=== PATIENT | male | born 1990 | race Caucasian/White ===

== ENCOUNTER 2023-08-07 06:04 | Day surgery (SDC) | payer OTHER ==
[~2023-08-07] VITALS: Ht 177.8 cm; Wt 128.5 kg
[~2023-08-07 06:04] MED LIST: GABA-282 PO; HYDR-3490 PO; LISI10TA22 PO; NAPR-885 PO; OMEP40CA5 PO; SYNT100T PO; TIZA10TA PO; VITA100093 PO
[2023-08-07] MEDS ORDERED: LR 1,000 ML IV SCH ×2 (06:10→09:00)
[2023-08-07] MEDS ORDERED: LIDOCAINE 2% 100MG/5ML SDV (FOR ANES.) As Ordered ONE (07:15)
[2023-08-07] MEDS ORDERED: fentaNYL 250 MCG/5 ML INJECTION As Ordered ONE (07:15)
[2023-08-07] MEDS ORDERED: MIDAZOLAM INJ 2MG/2ML VIAL As Ordered ONE (07:15)
[2023-08-07] MEDS ORDERED: propofoL 200 MG/20 ML VIAL As Ordered ONE (07:15)
[2023-08-07] MEDS ORDERED: ACETAMINOPHEN 1000MG 100ML IV BAG As Ordered ONE (07:15)
[2023-08-07] MEDS ORDERED: ONDANSETRON 4MG 2ML VIAL As Ordered ONE (07:15)
[2023-08-07] MEDS ORDERED: KETOROLAC 60MG 2ML VIAL As Ordered ONE (07:15)
[2023-08-07] MEDS: ceFAZolin 2 GM/D5W 50 ML IV BAG As Ordered ONE (07:40)
[2023-08-07] MEDS: ceFAZolin 1GM VIAL As Ordered ONE (07:40)
[2023-08-07] MEDS ORDERED: ONDANSETRON 4MG 2ML VIAL IV PRN (09:00)
[2023-08-07] MEDS ORDERED: fentaNYL 100 MCG/2 ML INJECTION IV PRN (09:00)
[2023-08-07] MEDS: BACITRACIN OINTMENT 30GM TUBE As Ordered ONE (09:05)
[2023-08-07] MEDS ORDERED: PERCOCET PO (09:20)
[2023-08-07] MEDS: oxyCODONE 5MG TAB PO PRN (09:48)
[2023-08-07] MEDS: HYDROMORPHONE HCL 0.5 MG/ 0.5 ML SYRINGE IV PRN (09:51)
[2023-08-07 10:58] VITALS: BP 139/68; TEMP 98.4; O2SAT 100
== END 2023-08-07 11:00 | disposition home or self-care (01) ==
LOC: M SDC 06:04
PROVIDERS: ATTEND Orthopaedic Surgery Hand Surgery
DX: S63.434A Traumatic rupture of volar plate of right ring finger at metacarpophalangeal and interphalangeal joint, initial encounter (principal); X58.XXXA Exposure to other specified factors, initial encounter; Y93.9 Activity, unspecified; Y92.9 Unspecified place or not applicable; I10 Essential (primary) hypertension; E78.00 Pure hypercholesterolemia, unspecified; E07.9 Disorder of thyroid, unspecified; Z79.899 Other long term (current) drug therapy; Z79.890 Hormone replacement therapy
CPT/HCPCS: 26548; 76000; C1713; J0131; J0665; J0690; J1100; J1170; J1885; J2250; J2405; J3010

== ENCOUNTER → 2023-08-14 | Outpatient (CLI) | payer OTHER ==
[~2023-08-14] MED LIST changes: +PERCOCET PO
== END ==
LOC: M SOG 07:56
PROVIDERS: ATTEND Physician Assistant
DX: S63.434A Traumatic rupture of volar plate of right ring finger at metacarpophalangeal and interphalangeal joint, initial encounter (principal); X58.XXXA Exposure to other specified factors, initial encounter; Y92.9 Unspecified place or not applicable; Y93.9 Activity, unspecified; Y99.9 Unspecified external cause status

== ENCOUNTER → 2023-09-06 | Outpatient (CLI) | payer OTHER | LOC: M SOG 14:53 | PROVIDERS: ATTEND Physician Assistant | DX: S63.434A Traumatic rupture of volar plate of right ring finger at metacarpophalangeal and interphalangeal joint, initial encounter (principal); W18.30XA Fall on same level, unspecified, initial encounter; Y92.009 Unspecified place in unspecified non-institutional (private) residence as the place of occurrence of the external cause ==

== ENCOUNTER → 2024-09-02 | Outpatient (CLI) | payer OTHER ==
[~2024-09-02] MED LIST changes: +GABA-1172 PO; -GABA-282 PO
== END ==
LOC: M PLAIMG 11:47
PROVIDERS: ATTEND Physician Assistant
DX: Z87.442 Personal history of urinary calculi (principal); R93.89 Abnormal findings on diagnostic imaging of other specified body structures

== ENCOUNTER 2024-12-28 15:29 | Emergency (ER) | payer OTHER ==
[~2024-12-28] VITALS: Ht 177.8 cm; Wt 120.5 kg
[2024-12-28] MEDS ORDERED: PERCOCET 5MG/325MG TAB PO ONE (16:10)
[2024-12-28 17:30] VITALS: TEMP 98.4
[2024-12-28] MEDS ORDERED: PERC5TAB12 PO (18:28)
[2024-12-28 18:30] VITALS: BP 128/63; O2SAT 96
[2024-12-28] MEDS: OXYCODONE/APAP 5MG/325MG(HOME DOSE PACK) PO ONE (18:35)
== END 2024-12-28 18:44 | disposition home or self-care (01) ==
LOC: EDBD 15:29 → M ED 15:29
DX: S69.92XA Unspecified injury of left wrist, hand and finger(s), initial encounter (principal); W23.2XXA Caught, crushed, jammed or pinched between a moving and stationary object, initial encounter; Y92.009 Unspecified place in unspecified non-institutional (private) residence as the place of occurrence of the external cause; Y93.9 Activity, unspecified; Y99.9 Unspecified external cause status; I10 Essential (primary) hypertension; E03.9 Hypothyroidism, unspecified; Z79.899 Other long term (current) drug therapy